=== PATIENT | male | born 1960 | race Caucasian/White ===

== ENCOUNTER 2017-06-19 17:16 | Emergency (ER) | payer OTHER, SELFPAY ==
[2017-06-19 17:50] VITALS: BP 84/53; PULSE 58; RESP 14; TEMP 36.1; O2SAT 94; BMI 31.2
--- NOTE | 2017-06-19 17:59 | PC.NURSE ---
pt nodding off during triage, mid sentence he would nod off. mentioned some doctor in [facility] who helps pt's get off pain medication. He also said he drove himself here.
[2017-06-19 18:25] VITALS: BP 92/56; PULSE 57; RESP 16; O2SAT 97
[2017-06-19 18:51] VITALS: BP 92/56; PULSE 58; RESP 16; O2SAT 95
--- NOTE | 2017-06-19 19:16 | DI.RAD.S_ITS ---
PROCEDURE: XR CHEST 1V INDICATIONS: sepsis eval TECHNIQUE: One view of the chest was acquired. COMPARISON: [facility], , CHEST 2 VIEW, 06/19/2014, 11:45. FINDINGS: Surgical changes and devices: Cervical spine postoperative change. Lungs and pleura: No pleural effusions or pneumothorax. Lungs are clear. Mediastinum: Prominent cardiac mediastinal silhouette. Bones and chest wall: No suspicious bony lesions. Overlying soft tissues appear unremarkable. IMPRESSION: Prominent cardiomediastinal silhouette is partially due to the portable technique. Recommend a PA and lateral chest radiograph in the department of radiology when the patient is able. Otherwise, negative chest. Dictated by: Antonio Bellamy M.D. on 06/19/2017 at 19:37 Approved by: Antonio Bellamy M.D. on 06/19/2017 at 19:38
--- NOTE | 2017-06-19 19:20 | DI.US.S_ITS ---
PROCEDURE: US PERIPH VENOUS LOW EXTREM RT INDICATIONS: PAIN, REDNESS TECHNIQUE: Real-time imaging, as well as color and pulse Doppler interrogation, were performed of the lower extremity deep veins from the inguinal ligament to the popliteal fossa. COMPARISON: None. FINDINGS: The deep veins are normally compressible, and free of intraluminal thrombus. Color and pulse Doppler demonstrate normal phasic intraluminal flow. There is normal augmentation response to distal compression maneuver. IMPRESSION: No sonographic evidence of deep venous thrombus in the right lower extremity to the level of the popliteal vein. Dictated by: Antonio Bellamy M.D. on 06/19/2017 at 20:06 Approved by: Antonio Bellamy M.D. on 06/19/2017 at 20:06
--- NOTE | 2017-06-19 19:31 | ED_ITS ---
HPI - Extremity Problem General Chief complaint: Extremity Problem,Nontraumatic Stated complaint: BOTH LEGS SWELLING Time Seen by Provider: 06/19/17 18:20 Source: patient Mode of arrival: ambulatory Limitations: no limitations History of Present Illness HPI Narrative: [facility] a chief complaint of gradually worsening swollen and painful lower extremities, right greater than left. He recently traveled from [place]. He denies any injury. He has got no shortness of breath but does feel fatigued. He has had fever and shaking chills the last few nights. MD Complaint: extremity pain Onset (ago): day(s) (4) Pain Consistency: constant Location: right Severity scale (1-10): 5 Quality: aching and dull Radiation: none Relieving factors: nothing Exacerbating factors: nothing Associated symptoms: fever Context: recent travel Related Data Home Medications Medication Instructions Recorded Confirmed ciprofloxacin HCl 500 mg BID 06/19/17 06/19/17 cyclobenzaprine 10 mg PO Q8H PRN 06/19/17 06/19/17 Previous Rx's Medication Instructions Recorded doxycycline monohydrate 100 mg PO BID 10 Days #20 cap 06/19/17 Allergies Allergy/AdvReac Type Severity Reaction Status Date / Time ibuprofen AdvReac Gastrointestinal Verified 06/19/17 17:59 Upset Review of Systems Review of Systems All systems reviewed & are unremarkable except as noted in HPI and below Constitutional Denies chills, Reports fever(s), Denies lethargy and Denies weakness Eyes Denies change in vision, Denies eye discharge, Denies irritation and Denies loss of vision ENT Ears, Nose, Mouth, and Throat: Denies change in voice, Denies neck pain and Denies sore throat Cardiovascular Denies chest pain, Denies irregular heart rhythm, Denies lightheadedness, Denies palpitations, Denies dyspnea, Denies dyspnea on exertion and Denies orthopnea Respiratory Denies cough, Denies dyspnea, Denies dyspnea on exertion and Denies wheezing Gastrointestinal Gastrointestinal: Denies abdominal pain, Denies change in bowel habits, Denies diarrhea, Denies nausea and Denies vomiting Genitourinary Denies hematuria, Denies flank pain, Denies urinary incontinence and Denies urinary urgency Musculoskeletal Denies neck pain Integumentary/Breasts Denies pruritus, Reports erythema, Denies rash and Reports wounds Comments: Patient has a chronic wound on the bottom of right great toe which he says has been there for at least 4 years. It is nonpainful Neurologic Denies confusion, Denies loss of vision and Denies weakness Psychiatric Denies anxiety, Denies confusion, Denies depression, Denies homicidal ideation and Denies suicidal ideation Endocrine Denies palpitations Hematologic/Lymphatic Denies easy bruising Allergic/Immunologic Denies wheezing PFSH Medical History Chronic back pain (Chronic) HTN (hypertension) (Chronic) Social History Smoking Status: Never smoker Exam Narrative Exam Narrative: Pleasant 57-year-old male in no obvious distress. He is a bit slow to respond Const General: cooperative and well developed Nutritional Appearance: well nourished Orientation: alert, awake, oriented x3, not confused and obtunded (mildly) HENMT Head: normocephalic and atraumatic Ears: external ears normal and TM's normal bilaterally Nose: external nose normal and No nasal discharge Face and sinus: sinuses nontender, face symmetric, no sinus tenderness and No dry mucous membranes Mouth: oral mucosae normal and moist mucous membranes Teeth and gingiva: dentition normal Throat: tonsils normal and uvula midline Eyes General: appearance normal, both eyes and all related structures Eyelids: eyelids normal Conjunctivae: conjunctivae normal Sclera: sclerae normal Pupils: PERRL EOM: EOM intact bilaterally Neck Neck: normal visual inspection, trachea midline, No lymphadenopathy, No midline deformity and No JVD Lymphatic: No lymphedema Chest Chest: normal inspection of the chest Resp Effort & Inspection: normal respiratory effort, able to speak in complete sentences, no respiratory distress and no use of accessory muscles Auscultation: clear to auscultation bilaterally, no rales, no rhonchi and no wheezes Cardio Rate: regular rate Rhythm: regular rhythm Heart Sounds: no click, no gallops, no murmurs and no rubs Pulses: normal peripheral pulses GI Inspection: non-distended Palpation: soft, no hepatosplenomegaly, No guarding, No pulsatile mass and No tender Auscultation: normal bowel sounds Back/Spine/Pelvis Back: No CVA tenderness Cervical Spine: cervical ROM normal and No pain with cervical ROM Thoracic/Lumbar Spine: thoracic and lumbar spine normal to inspection Skin General: dry skin and erythema Lesions: lesion noted (base of R great toe) Rashes: no rashes Trauma: no lacerations or abrasions Wounds: no wounds Hair: brittle Neuro General: alert, oriented x3, gait normal and no focal motor deficits Cranial Nerves: CN's II-XI intact bilaterally Speech: speech normal Motor: strength 5/5 throughout Sensory Exam: no sensory deficits noted Extrem Right lower extremity: full ROM, normal capillary refill, edema and lower leg ( erythema, calf tenderness) Left lower extremity: full ROM, normal capillary refill and edema MDM - Extremity (Nontraumatic) Lab Data Result diagrams: 06/19/17 20:20 06/19/17 20:20 Lab Results 06/19/17 06/19/17 06/19/17 Range/Units 20:20 20:20 20:20 WBC 26.7 H (4.5-11.0) X10^3/uL RBC 4.31 L (4.5-5.9) X10^6/uL Hgb 11.8 L (13.5-17.5) g/dL Hct 36.3 L (41-53) % MCV 84.3 (80-100) fL MCH 27.3 (26-34) PG MCHC 32.4 (30-36) % RDW 13.8 (11.6-14.8) % Plt Count 194 (150-400) X10^3/uL Neut % (Auto) Not Reportable Lymph % (Auto) Not Reportable Bent % (Auto) Not Reportable Eos % (Auto) Not Reportable Baso % (Auto) Not Reportable Total Counted 100 Seg Neutrophils % 13.0 L (38-70) % Band Neutrophils % 4.0 (3-7) % Lymphocytes % (Manual) 24.0 L (25-45) % Atypical Lymphs % 51.0 H ( - 0) % Monocytes % (Manual) 8.0 (2-11) % Neutrophils # (Manual) 4539 (1424-0329) /uL Differential Comment Not Reportable Anisocytosis 1+ H Sodium 142 (137-145) mmol/L Potassium 4.6 (3.4-5.1) mmol/L Chloride 104.0 (98-107) mmol/L Carbon Dioxide 26.0 (22-32) mmol/L BUN 12.0 (9-20) mg/dL Creatinine 1.00 (0.66-1.25) mg/dL Estimated GFR > 60.0 (>60) mL/min BUN/Creatinine Ratio 12.0 (6-22) Glucose 167 H (70-100) mg/dL Lactate (0.7-2.1) mmol/L Calcium 8.7 (8.4-10.2) mg/dL Total Bilirubin 0.6 (0.2-1.3) mg/dL Procalcitonin 0.07 (<0.5) ng/mL 06/19/17 Range/Units 20:20 WBC (4.5-11.0) X10^3/uL RBC (4.5-5.9) X10^6/uL Hgb (13.5-17.5) g/dL Hct (41-53) % MCV (80-100) fL MCH (26-34) PG MCHC (30-36) % RDW (11.6-14.8) % Plt Count (150-400) X10^3/uL Neut % (Auto) Lymph % (Auto) Bent % (Auto) Eos % (Auto) Baso % (Auto) Total Counted Seg Neutrophils % (38-70) % Band Neutrophils % (3-7) % Lymphocytes % (Manual) (25-45) % Atypical Lymphs % ( - 0) % Monocytes % (Manual) (2-11) % Neutrophils # (Manual) ([id number]) /uL Differential Comment Anisocytosis Sodium (137-145) mmol/L Potassium (3.4-5.1) mmol/L Chloride (98-107) mmol/L Carbon Dioxide (22-32) mmol/L BUN (9-20) mg/dL Creatinine (0.66-1.25) mg/dL Estimated GFR (>60) mL/min BUN/Creatinine Ratio (6-22) Glucose (70-100) mg/dL Lactate 0.9 (0.7-2.1) mmol/L Calcium (8.4-10.2) mg/dL Total Bilirubin (0.2-1.3) mg/dL Procalcitonin (<0.5) ng/mL Imaging Data Venous US: Radiologist's impression: PROCEDURE: US PERIPH VENOUS LOW EXTREM RT INDICATIONS: PAIN, REDNESS TECHNIQUE: Real-time imaging, as well as color and pulse Doppler interrogation, were performed of the lower extremity deep veins from the inguinal ligament to the popliteal fossa. COMPARISON: None. FINDINGS: The deep veins are normally compressible, and free of intraluminal thrombus. Color and pulse Doppler demonstrate normal phasic intraluminal flow. There is normal augmentation response to distal compression maneuver. IMPRESSION: No sonographic evidence of deep venous thrombus in the right lower extremity to the level of the popliteal vein. Dictated by: Antonio Bellamy M.D. on 06/19/2017 at 20:06 Approved by: Antonio Bellamy M.D. on 06/19/2017 at 20:06 Discharge Plan Departure Patient Disposition: Home, Self-Care Discharge Date/Time: 06/20/17 00:52 Interventions: ED Discharge Assessment Last Done: 06/20/17 00:45 Instructions: DI for Cellulitis -- Adult Activity Restrictions/Additional Instructions: There is no evidence of an emergent or life threatening illness at this time, but follow up with your doctor in 1-2 days is recommended nonetheless to continue to rule out serious underlying causes of your symptoms. Please call the office for an appointment. Please return to the Emergency Department for any worsening or persistent symptoms. Please take medications as directed. Prescriptions: New doxycycline monohydrate 100 mg capsule 100 mg PO BID 10 Days Qty: 20 RF: 0 No Action ciprofloxacin HCl 500 mg tablet 500 mg BID RF: 0 cyclobenzaprine 10 mg Tablet 10 mg PO Q8H PRN (Reason: Pain) RF: 0
[2017-06-19 20:30] VITALS: BP 153/89; PULSE 64; RESP 17; O2SAT 100
[2017-06-19 20:45] VITALS: BP 153/89; PULSE 70; RESP 22
[2017-06-19 20:47] LABS: Hematocrit 36.3 % (41-53); Hemoglobin 11.8 g/dL (13.5-17.5); Mean Corpuscular HGB Conc 32.4 % (30-36); Mean Corpuscular Hemoglobin 27.3 PG (26-34); Mean Corpuscular Volume 84.3 fL (80-100); Platelet Count 194 X10^3/uL (150-400); Red Blood Cell Count 4.31 X10^6/uL (4.5-5.9); Red Cell Distribution Width 13.8 % (11.6-14.8); White Blood Cell Count 26.7 X10^3/uL (4.5-11.0)
[2017-06-19 20:49] LABS: Add Manual Diff / Slide Review YES
[2017-06-19 20:52] LABS: Bilirubin Total 0.6 mg/dL (0.2-1.3); Calcium 8.7 mg/dL (8.4-10.2); Estimated Glomerular Filt Rate > 60.0 mL/min (>60); Glucose 167 mg/dL (70-100); HEMOLYSIS 27 (0-50); Potassium 4.6 mmol/L (3.4-5.1); Sodium 142 mmol/L (137-145)
[2017-06-19 21:13] LABS: Neutrophils Absolute Manual 4539 /uL (3000-5900); Smudge Cells 3+; Total Cells Counted 100
[2017-06-19 21:14] LABS: Anisocytosis 1+
[2017-06-19 21:36] LABS: Procalcitonin 0.07 ng/mL (<0.5)
[2017-06-19 21:49] LABS: Lactate (Lactic Acid) 0.9 mmol/L (0.7-2.1)
[2017-06-19] MEDS: VANCOMYCIN IV (22:26)
[2017-06-19 22:36] VITALS: BP 174/95; PULSE 59; RESP 17; O2SAT 98
[2017-06-19] MEDS: DOXYCYCLINE HYCLATE 100 MG TABLET PO (23:53)
[2017-06-20 00:45] VITALS: BP 201/135; PULSE 78; RESP 20; TEMP 36.4; O2SAT 97
== END 2017-06-20 00:52 | disposition home or self-care (01) ==
PROVIDERS: Emergency Provider Emergency Medicine
DX: L03.115 Cellulitis of right lower limb (principal)
CPT/HCPCS: 36415; 36591; 71045; 80048; 82247; 83605; 84145; 85025; 87040; 93971; 96374; 99283; 99284; J3370

== ENCOUNTER → 2017-10-07 16:10 | Outpatient (CLI) | payer OTHER, SELFPAY ==
--- NOTE | 2017-10-07 16:17 | DI.RAD.S_ITS ---
PROCEDURE: XR CERVICAL SPINE 2V OR 3V INDICATIONS: CERVICAL RADICULOPATHY TECHNIQUE: 3 view(s) of the cervical spine were acquired. COMPARISON: None. FINDINGS: Bones: No fractures or dislocations to the T1 level. Prior ACDF C4-C5/C5-C6 with surgical plate, screws and bone grafts in expected position. Grade I retrolisthesis C3-C4. Moderate C6-C7 disc degeneration. Mild multilevel uncovertebral hypertrophy. The lateral masses of C1 appear intact on the odontoid view. No suspicious bony lesions. Soft tissues: No prevertebral soft tissue swelling. IMPRESSION: Multilevel degenerative change and prior ACDF C4-C5 and C5-C6. Dictated by: [facility] Interpreted: Abraham Norris MD on 10/07/2017 at 16:47 Approved by: Abraham Norris M.D. on 10/07/2017 at 17:01
== END ==
PROVIDERS: Family Provider Internal Medicine; PCP Internal Medicine; Visit Provider Internal Medicine
DX: M50.123 Cervical disc disorder at C6-C7 level with radiculopathy (principal); Z98.1 Arthrodesis status
CPT/HCPCS: 72040

== ENCOUNTER 2017-10-07 16:42 | Emergency (ER) | payer OTHER, SELFPAY | END 2017-10-07 17:23 | LOC: ED 16:44 | PROVIDERS: Family Provider Internal Medicine; PCP Internal Medicine | DX: T14.8XXA Other injury of unspecified body region, initial encounter (principal) | CPT/HCPCS: 99281 ==

== ENCOUNTER 2017-10-23 17:55 | Emergency (ER) | payer OTHER, SELFPAY ==
[2017-10-23 17:59] VITALS: BP 168/93; PULSE 82; RESP 14; O2SAT 100
--- NOTE | 2017-10-23 18:01 | DI.RAD.S_ITS ---
PROCEDURE: XR HIP W PEL IF DONE LT MIN 4V INDICATIONS: glf, lt hip pain TECHNIQUE: AP pelvis with lateral view(s) of the bilateral hip(s). COMPARISON: [facility] Orthopedic [facility], CR, XR PELVIS W LATERAL HIP LT, 06/27/2016, 14:46. [facility], CR, PELVIS W UNILATERAL HIP LEFT, 02/14/2015, 22:08. FINDINGS: Bones: No fractures or dislocations. Severe left hip joint space narrowing. Subchondral cyst within the left superior femoral head and acetabulum. Moderate right hip joint space narrowing and periarticular osteophyte formation. Pelvic ring appears intact. No suspicious bony lesions. Soft tissues: The visualized bowel gas pattern is normal. No suspicious soft tissue calcifications. IMPRESSION: 1. Left greater than right hip joint osteoarthritis. 2. No acute fracture. No osseous lesion. If clinical suspicion and/or symptoms persist, further assessment with repeat plainfilms, or advanced imaging (e.g., CT, MRI, or bone scan) may be helpful for further assessment. Dictated by: Vidhya Mora M.D. on 10/23/2017 at 18:20 Approved by: Vidhya Mora M.D. on 10/23/2017 at 18:21
--- NOTE | 2017-10-23 20:06 | ED.LOWEXIN ---
HPI - Extremity Injury (Lower) General Chief Complaint: Extremity Injury, Lower Stated Complaint: FELL LAST NIGHT Time Seen by Provider: 10/23/17 19:38 Source: patient Mode of arrival: ambulatory Limitations: no limitations History of Present Illness HPI Narrative: This 57-year-old gentleman comes in due to increased left hip and SI area pain after a fall yesterday evening. He states that he got out of bed last night to get something to drink, and his right foot slid straight out from under him. He states he hit his hip area on the edge of a bed post and fell backwards on the some boxes. He has felt a popping sensation in his knee recently and has had ongoing problems with arthritis. He states initially, he was not able to stand due to sensation of the hip giving out, later, he has been able to walk with support, i.e. from a counter. He states that he has ongoing urinary urgency, no acutely changed bowel or bladder symptoms. States that he does not have any paresthesia. He feels pain radiating down from the left gluteal to proximal thigh area and some on the lateral hip. His right knee feels unstable which has been an ongoing problem. It is difficult for him to tell whether there is any laxity in the hip due to his difficulty walking at baseline . He states that he has arthritis in multiple joints due to previous trauma. He denies any other injury such as head contusion or LOC. He states he has been using his regular pain medications but has not tried his Flector patch which previously has been very helpful for him. Related Data Home Medications Medication Instructions Recorded Confirmed atenolol 25 mg PO QDAY #0 09/07/12 oxycodone [OxyContin] 30 mg PO BID #0 09/07/12 oxycodone [Roxicodone] 30 mg PO Q3H #0 09/07/12 venlafaxine [Effexor XR] 150 mg PO QDAY #0 09/07/12 cyclobenzaprine 10 mg PO Q8H PRN 06/19/17 10/07/17 carvedilol 25 mg PO BID 10/07/17 10/07/17 diazepam 10/07/17 fluticasone-salmeterol [Advair 1 puff INHALATION BID 10/07/17 10/07/17 Diskus] naloxone [Narcan] 1 dose INTRANASAL DIRECTED 10/07/17 10/07/17 oxycodone 10/07/17 oxycodone [OxyContin] 1 tab PO BID 10/07/17 10/07/17 tizanidine 10/07/17 Allergies Allergy/AdvReac Type Severity Reaction Status Date / Time shellfish derived Allergy Intermediate FACIAL Unverified 05/29/17 12:24 SWELLING ibuprofen AdvReac Gastrointestinal Verified 06/19/17 17:59 Upset PFSH Medical History Fusion of spine of lumbosacral region (Resolved) Contusion of hip with intact skin (Acute) Osteoarthritis (Chronic) Back pain, sacroiliac (Chronic) Osteoarthritis of left hip (Chronic) Left sided sciatica (Chronic) Chronic back pain (Chronic) HTN (hypertension) (Chronic) Social History Smoking Status: Never smoker Exam Narrative Exam Narrative: GENERAL APPEARANCE: Patient sitting comfortably, in no distress. LUNGS: Clear to auscultation bilaterally. HEART: Rate and rhythm regular without murmur, normal S1 and S2, no S3 or S4. DERMATOLOGIC: No ecchymoses or wounds over the left lumbosacral area, hip, or right knee MUSCULOSKELETAL: Right knee no effusion or tenderness over the bony prominences. He has somewhat limited flexion with moderate crepitus. Left SI joint he has mild tenderness. No point tenderness over the left hip. No tenderness over the lumbosacral spine. Left lower extremity strength 5/5 hip flexion, knee extension, foot plantar flexion. Negative straight leg raise. Hip passive and active range of motion is limited secondary to tenderness. NEUROVASCULAR: Left lower extremity and foot warm and pink, sensation grossly intact Initial Vital Signs Initial Vital Signs: Vital Signs Pulse Rate 82 10/23/17 17:59 Respiratory Rate 14 10/23/17 17:59 Blood Pressure 168/93 H 10/23/17 17:59 Pulse Oximetry 100 10/23/17 17:59 Course Orders Ordered: ED Orders 10/23/17 18:01 XR hip w pel if done HALEY 3to4V Stat Vital Signs - 8 hr 10/23/17 17:59 10/23/17 20:39 Pulse Rate 82 68 Respiratory Rate 14 Blood Pressure 168/93 H Blood Pressure [Left Arm] 165/76 H Pulse Oximetry 100 100 MDM - Extremity Injury (Lower) Imaging Data hip: Radiologist's impression: [address] [address] XRay Report Signed Patient: Joshua Wilson MR#: [id number] : 1960 Acct:[id number] Age/Sex: 57 / M Date of Service: 10/23/17 Loc: ED Accession Number: [id number] Procedure: XR hip w pel if done HALEY 3to4V Ordering Provider: Suzanne De Leon D.O. PROCEDURE: XR HIP W PEL IF DONE LT MIN 4V INDICATIONS: glf, lt hip pain TECHNIQUE: AP pelvis with lateral view(s) of the bilateral hip(s). COMPARISON: [facility] Orthopedic [facility], CR, XR PELVIS W LATERAL HIP LT, 06/27/2016, 14:46. [facility], CR, PELVIS W UNILATERAL HIP LEFT, 02/14/2015, 22:08. FINDINGS: Bones: No fractures or dislocations. Severe left hip joint space narrowing. Subchondral cyst within the left superior femoral head and acetabulum. Moderate right hip joint space narrowing and periarticular osteophyte formation. Pelvic ring appears intact. No suspicious bony lesions. Soft tissues: The visualized bowel gas pattern is normal. No suspicious soft tissue calcifications. IMPRESSION: 1. Left greater than right hip joint osteoarthritis. 2. No acute fracture. No osseous lesion. If clinical suspicion and/or symptoms persist, further assessment with repeat plainfilms, or advanced imaging (e.g., CT, MRI, or bone scan) may be helpful for further assessment. Dictated by: Vidhya Mora M.D. on 10/23/2017 at 18:20 Approved by: Vidhya Mora M.D. on 10/23/2017 at 18:21 Discharge Plan Departure Patient Disposition: Home Clinical Impression: Contusion of hip with intact skin, Osteoarthritis, Back pain, sacroiliac Discharge Date/Time: 10/23/17 20:51 Interventions: ED Discharge Assessment Last Done: 10/23/17 20:51 Instructions: Sacroiliac Joint Pain Activity Restrictions/Additional Instructions: Your xray does not show any acute changes such as a fracture, however it does show significant osteoarthritis, that is worse on the left. You are also having some pain in the joint were your back in your hip connect, called the sacroiliac joint. I suspect all of this is due to your fall and contusion of this area, and I agree with you it is a good idea to try your Flector patch that you have at home for the pain. Please return as we talked about if you have any acutely worsening symptoms. Otherwise, please call your orthopedics or PCP office to schedule follow up next week for recheck as you may need further imaging or testing if you are not getting better. Please be sure to use your walker! Prescriptions: No Action atenolol 25 MG tablet 25 mg PO QDAY Qty: 0 RF: 0 venlafaxine [Effexor XR] 150 MG capsule,extended release 24hr 150 mg PO QDAY Qty: 0 RF: 0 oxycodone [Roxicodone] 30 MG tablet 30 mg PO Q3H Qty: 0 RF: 0 oxycodone [OxyContin] 30 MG tablet,oral only,ext.rel.12 hr 30 mg PO BID Qty: 0 RF: 0 cyclobenzaprine 10 mg Tablet 10 mg PO Q8H PRN (Reason: Pain) RF: 0 fluticasone-salmeterol [Advair Diskus] 250-50 mcg/dose blister with device 1 puff Inhalation BID RF: 0 carvedilol 25 mg tablet 25 mg PO BID RF: 0 tizanidine 4 mg tablet RF: 0 oxycodone 30 mg tablet RF: 0 diazepam 10 mg tablet RF: 0 oxycodone [OxyContin] 60 mg tablet,oral only,ext.rel.12 hr 1 tab PO BID RF: 0 naloxone [Narcan] 4 mg/actuation spray,non-aerosol 1 dose Intranasal DIRECTED RF: 0 Referrals: Leilani Watson [Primary Care Provider] - Noel Zuniga MD [Physician] -
[2017-10-23 20:39] VITALS: BP 165/76; PULSE 68; O2SAT 100
== END 2017-10-23 20:51 | disposition home or self-care (01) ==
PROVIDERS: Emergency Provider Internal Medicine; Family Provider Internal Medicine; PCP Internal Medicine
DX: S70.02XA Contusion of left hip, initial encounter (principal); M19.90 Unspecified osteoarthritis, unspecified site; M53.3 Sacrococcygeal disorders, not elsewhere classified; W01.0XXA Fall on same level from slipping, tripping and stumbling without subsequent striking against object, initial encounter
CPT/HCPCS: 73522; 99282; 99283

== ENCOUNTER → 2018-09-29 16:16 | Outpatient (CLI) | payer OTHER, SELFPAY ==
[2018-09-29 18:19] LABS: Hematocrit 38.5 % (41-53); Mean Corpuscular HGB Conc 31.3 % (30-36); Mean Corpuscular Hemoglobin 25.8 PG (26-34); Mean Corpuscular Volume 82.4 fL (80-100); Platelet Count 204 X10^3/uL (150-400); Red Blood Cell Count 4.67 X10^6/uL (4.5-5.9); Red Cell Distribution Width 14.3 % (11.6-14.8)
[2018-09-29 18:22] LABS: Alanine Aminotransferase 28 IU/L (21-72); Albumin 4.1 g/dL (3.5-5.0); Albumin Globulin Ratio 1.5 (1.0-2.8); Alkaline Phosphatase 135 U/L (38-126); Aspartate Aminotransferase 28 IU/L (17-59); BUN Creatinine Ratio 13.8 (6-22); Bilirubin Total 0.7 mg/dL (0.2-1.3); Blood Urea Nitrogen 11 mg/dL (9-20); Calcium 9.2 mg/dL (8.4-10.2); Carbon Dioxide 30 mmol/L (22-32); Chloride 102 mmol/L (98-107); Cholesterol 173 mg/dL (140-199); Estimated Glomerular Filt Rate > 60.0 mL/min (>60); Globulin 2.8 g/dL (1.7-4.1); Glucose 190 mg/dL (70-100); HDL Cholesterol 29 mg/dL (40-60); HEMOLYSIS < 15 (0-50); Hemoglobin A1C% w Est Avg Glu 9.9 % (4.0-6.0); LDL Cholesterol Calculated 121 mg/dL (<100); Sodium 142 mmol/L (137-145); Total Protein 6.9 g/dL (6.3-8.2); Triglycerides 115 mg/dL (35-150)
[2018-09-29 18:47] LABS: Thyroid Stimulating Hormone 1.72 uIU/mL (0.47-4.68)
[2018-09-29 19:02] LABS: Add Manual Diff / Slide Review YES
[2018-09-29 19:05] LABS: Neutrophils Absolute Manual 9870 /uL (3000-5900); Smudge Cells 2+; Total Cells Counted 100
[2018-09-29 19:30] LABS: Folate 6.8 ng/mL (2.76-20.0); Vitamin B12 464 pg/mL (239-931)
== END ==
PROVIDERS: Family Provider Internal Medicine; PCP Internal Medicine; Visit Provider Internal Medicine
DX: C91.10 Chronic lymphocytic leukemia of B-cell type not having achieved remission (principal); E11.65 Type 2 diabetes mellitus with hyperglycemia; M54.12 Radiculopathy, cervical region; I10 Essential (primary) hypertension; E78.5 Hyperlipidemia, unspecified; R53.81 Other malaise
CPT/HCPCS: 36415; 80053; 80061; 82607; 82746; 83036; 84443; 85025

== ENCOUNTER 2020-01-17 20:27 | Emergency (ER) | payer OTHER, SELFPAY ==
[2020-01-17 20:34] VITALS: BP 181/93; PULSE 89; RESP 22; TEMP 37; O2SAT 95
--- NOTE | 2020-01-17 21:24 | ED.WOUNDLAC ---
HPI - Wound/Laceration General Chief Complaint: Wound/Laceration Stated Complaint: wound to left hand Time Seen by Provider: 01/17/20 20:47 Source: patient Mode of arrival: Ambulatory Limitations: no limitations History of Present Illness HPI narrative: 59M non smoker with extensive medical history presents with an accidental laceration to his left hand. He was walking and tripped while carrying a glass which then broke and lacerated the palm of his hand. His tetanus is current, he has full range of motion and denies numbness tingling or weakness. He is otherwise well and free of complaint. Onset (ago): minute(s) Extremity Location: Left: hand Body four view annotation: 1. Place: home Patient tetanus UTD: Yes Context: accidental Associated symptoms: pain Treatments prior to arrival: bandage Related Data Home Medications Medication Instructions Recorded Confirmed atenolol 25 mg PO QDAY #0 09/07/12 oxycodone [OxyContin] 30 mg PO BID #0 09/07/12 oxycodone [Roxicodone] 30 mg PO Q3H #0 09/07/12 venlafaxine [Effexor XR] 150 mg PO QDAY #0 09/07/12 cyclobenzaprine 10 mg PO Q8H PRN 06/19/17 10/07/17 carvedilol 25 mg PO BID 10/07/17 10/07/17 diazepam 10/07/17 fluticasone propion-salmeterol 1 puff INHALATION BID 10/07/17 10/07/17 [Advair Diskus] naloxone [Narcan] 1 dose INTRANASAL DIRECTED 10/07/17 10/07/17 oxycodone 10/07/17 oxycodone [OxyContin] 1 tab PO BID 10/07/17 10/07/17 tizanidine 10/07/17 Previous Rx's Medication Instructions Recorded cephalexin [Keflex] 500 mg PO QID 7 Days #28 cap 01/17/20 Allergies Allergy/AdvReac Type Severity Reaction Status Date / Time shellfish derived Allergy Intermediate FACIAL Unverified 05/29/17 12:24 SWELLING ibuprofen AdvReac Gastrointestinal Verified 06/19/17 17:59 Upset Review of Systems Constitutional Constitutional: Denies chills, Denies fatigue, Denies fever(s), Denies frequent falls, Denies lethargy and Denies weakness Eyes Eyes: Denies change in vision, Denies eye discharge, Denies irritation and Denies loss of vision ENT Ears, Nose, Mouth, and Throat: Denies change in voice, Denies dizziness, Denies neck pain, Denies sore throat and Denies throat swelling Cardiovascular Cardiovascular: Denies chest pain, Denies irregular heart rhythm, Denies lightheadedness, Denies palpitations, Denies dyspnea, Denies dyspnea on exertion and Denies orthopnea Respiratory Respiratory: Denies cough, Denies dyspnea, Denies dyspnea on exertion and Denies wheezing Gastrointestinal Gastrointestinal: Denies abdominal pain, Denies change in bowel habits, Denies diarrhea, Denies nausea and Denies vomiting Musculoskeletal Musculoskeletal: Denies neck pain and Denies numbness Integumentary/Breasts Skin/Breast: Denies pruritus, Denies erythema, Denies rash and Reports wounds Neurologic Neurologic: Denies behavioral changes, Denies confusion, Denies dizziness, Denies frequent falls, Denies loss of vision, Denies numbness and Denies weakness Psychiatric Psychiatric: Denies anxiety, Denies behavioral changes, Denies confusion, Denies depression, Denies homicidal ideation and Denies suicidal ideation Endocrine Endocrine: Denies fatigue, Denies flushing and Denies palpitations Hematologic/Lymphatic Hematologic/Lymphatic: Denies easy bruising Allergic/Immunologic Allergic/Immunologic: Denies urticaria, Denies throat swelling and Denies wheezing Patient History Medical History Back pain, sacroiliac Chronic back pain Contusion of hip with intact skin Fusion of spine of lumbosacral region HTN (hypertension) Left sided sciatica Osteoarthritis Osteoarthritis of left hip Social History Smoking Status: Never smoker Smoking Status: Never smoker Substance Use Type: does not use Exam Narrative Exam Narrative: GEN: AOx3 and in mild distress EYES: Pupils are equal, round, and reactive to light and accommodation. Extraoccular muscles are intact bilaterally. There is no subconjunctival hemorrhage or exudate. CHEST: Lungs are clear to auscultation bilaterally and free of wheezes, rales, or rhonchi. Heart rate is regular rhythm, there are no murmurs, clicks, rubs, or gallops. There is no chest wall tenderness. ABD: Abdomen is soft and nontender. There is no guarding or rebound. Bowel sounds are normal in all 4 quadrants. There is no mass or organomegaly. EXT: 2 cm laceration on the thenar eminence with extensive probing and no suspicion of foreign body. A 2nd much smaller, 0.3 cm irregular laceration at the base of the 5th finger on palmar surface will require 1 suture Full painless ROM of all extremities with no loss of sensation or strength. SKIN: Warm, pink, and dry. No erythema or rash Initial Vital Signs Initial Vital Signs: Vital Signs Temperature 98.6 F 01/17/20 20:34 Pulse Rate 89 01/17/20 20:34 Respiratory Rate 22 01/17/20 20:34 Blood Pressure 181/93 H 01/17/20 20:34 Pulse Oximetry 95 01/17/20 20:34 Procedures Laceration Repair Laceration 1: Site: hand Side (If applicable): left Size (cm): 2 Description: linear Depth: simple, single layer Local Anesthetic: lidocaine 1% Amount of anesthesia used (mL): 4 Pre-repair: wound explored and irrigated extensively Skin layer closed with: nylon Size (cm): 5-0 Number of sutures: 4 Technique: simple, interrupted Laceration 2: Site: hand Side (If applicable): left Size (cm): 0.3 Description: stellate Depth: simple, single layer Local Anesthetic: lidocaine 1% Skin layer closed with: nylon Size (cm): 5-0 Number of sutures: 1 Course Orders Ordered: ED Orders 01/17/20 21:38 XR hand LT min 3V Stat Discontinued Medications Lidocaine/Sodium Bicarbonate (Lido 1%/Sod Bicarb 8.4% (10ml) 10 Ml Syringe) 10 ml INJ NOW ONE Stop: 01/17/20 21:33 Last Admin: 01/17/20 21:49 Dose: 10 ml Documented by: MITCHELL Vital Signs Vital signs: Vital Signs - 8 hr 01/17/20 20:34 01/17/20 22:37 Temperature 98.6 F Pulse Rate 89 67 Respiratory Rate 22 18 Blood Pressure 181/93 H 173/83 H Pulse Oximetry 95 97 MDM - Wound/Laceration Imaging Data Extremity x-ray #1: Radiologist's Impression: No FB Discharge Plan Departure Patient Disposition: Home Clinical Impression: Laceration Instructions: DI for Laceration Repair Activity Restrictions/Additional Instructions: *You have been diagnosed with [lacerations on left hand, no sign of foreign body] *What to do: *Take medications as directed: [facility] in [place] Please keep the wound clean and dry to the best of your ability. Please monitor for signs of infection such as redness to the skin or increasing pain. Have the sutures removed by your doctor in about 7 days. If you are unable to get into your doctor, we would be happy to remove the sutures in that same timeframe. *Return to ER if you should have any new, worsening or concerning symptoms, such as [increasing pain, swelling, redness or other concerning symptoms] Prescriptions: New cephalexin [Keflex] 500 mg capsule 500 mg PO QID 7 Days Qty: 28 RF: 0 No Action atenolol 25 MG tablet 25 mg PO QDAY Qty: 0 RF: 0 venlafaxine [Effexor XR] 150 MG capsule,extended release 24hr 150 mg PO QDAY Qty: 0 RF: 0 oxycodone [Roxicodone] 30 MG tablet 30 mg PO Q3H Qty: 0 RF: 0 oxycodone [OxyContin] 30 MG tablet,oral only,ext.rel.12 hr 30 mg PO BID Qty: 0 RF: 0 cyclobenzaprine 10 mg Tablet 10 mg PO Q8H PRN (Reason: Pain) RF: 0 fluticasone propion-salmeterol [Advair Diskus] 250-50 mcg/dose blister with device 1 puff Inhalation BID RF: 0 carvedilol 25 mg tablet 25 mg PO BID RF: 0 tizanidine 4 mg tablet RF: 0 oxycodone 30 mg tablet RF: 0 diazepam 10 mg tablet RF: 0 oxycodone [OxyContin] 60 mg tablet,oral only,ext.rel.12 hr 1 tab PO BID RF: 0 naloxone [Narcan] 4 mg/actuation spray,non-aerosol 1 dose Intranasal DIRECTED RF: 0 Referrals: Leilani Watson MD [Primary Care Provider] -
--- NOTE | 2020-01-17 21:38 | DI.RAD.S_ITS ---
PROCEDURE: XR HAND LT MIN 3V INDICATIONS: wounds with leaded glass TECHNIQUE: 3 views of the hand(s) acquired. COMPARISON: None. FINDINGS: Bones: No fractures or dislocations. Carpal bones are normally aligned. No suspicious bony lesions. Soft tissues: No suspicious soft tissue calcifications. No radiopaque foreign body. IMPRESSION: No radiopaque foreign body identified. -If clinically indicated consider follow-up targeted ultrasound. No acute osseous abnormality. Dictated by: Jim Seay M.D. on 01/17/2020 at 21:55 Approved by: Jim Seay M.D. on 01/17/2020 at 21:57
[2020-01-17] MEDS: LIDO 1%/SOD BICARB 8.4% (10ML) 10 ML SYRINGE INJ (21:49)
[2020-01-17 22:37] VITALS: BP 173/83; PULSE 67; RESP 18; O2SAT 97
== END 2020-01-17 22:38 | disposition home or self-care (01) ==
PROVIDERS: Emergency Provider Emergency Medicine; Family Provider Internal Medicine; PCP Internal Medicine
DX: S61.412A Laceration without foreign body of left hand, initial encounter (principal); W25.XXXA Contact with sharp glass, initial encounter
CPT/HCPCS: 12001; 73130; 99283

== ENCOUNTER 2020-03-28 15:15 | Emergency (ER) | payer OTHER, SELFPAY ==
[2020-03-28 15:22] VITALS: BP 147/72; PULSE 92; RESP 20; TEMP 36.1; O2SAT 100
--- NOTE | 2020-03-28 17:07 | PC.NURSE ---
Received notes from Naif. Reviewed by provider. Orders placed. Attempted to bring pt to room and found him not in waiting room. Registration state he walked out @ 1600.
--- NOTE | 2020-03-28 17:10 | PC.NURSE ---
Called pt who answered his cell phone. I was calling to offer that he could come back to the ED w/ immediate rooming. He states I don't wait anywhere for hours and bitches like you who make me wait make me sick. I'll never come back to [facility] again. Noted pt left less than one hour after triage per registration report, did not know why he was coming to ED and was hemodynamically stable upon triage. No shortness of breath noted during our brief conversation (able to speak in long sentence without stopping to take a breath). Hung up on me before I could tell him to follow up as needed and indicated and return for any concerns.
== END 2020-03-28 17:27 | disposition left against medical advice (07) ==
PROVIDERS: Emergency Provider Emergency Medicine; Family Provider Internal Medicine; PCP Internal Medicine
CPT/HCPCS: 99281

== ENCOUNTER 2020-04-07 13:13 | Emergency (ER) | payer OTHER, SELFPAY ==
[2020-04-07] VITALS (18 sets, daily range): BP systolic 164–210; BP diastolic 79–131; PULSE 61–88; RESP 11–26; TEMP 37.2; O2SAT 80–100; BMI 27.5
--- NOTE | 2020-04-07 13:59 | DI.RAD.S_ITS ---
PROCEDURE: XR CHEST 1V INDICATIONS: suspected sepsis TECHNIQUE: One view of the chest was acquired. COMPARISON: [facility], , XR CHEST 1V, 06/19/2017, 19:27. [facility], , CHEST 2 VIEW, 06/19/2014, 11:45. FINDINGS: Surgical changes and devices: None. Lungs and pleura: Lungs are difficult to accurately assess due to patient rotation and tilt. When these factors are taken into account and also body habitus the heart size is likely at the upper limits of normal but no definite congestive heart failure is seen. Lung base atelectasis is mild.. No pleural effusions or pneumothorax. Mediastinum: Mediastinal contours appear normal. Heart size is normal. Bones and chest wall: No suspicious bony lesions. Overlying soft tissues appear unremarkable. IMPRESSION: No definite pneumonia found but the patient is rotated and tilted rightward and quality of visualization through the lungs is relatively limited. Follow-up deep inspiratory imaging may be warranted when clinically feasible. Dictated by: Abraham Norris M.D. on 04/07/2020 at 15:04 Approved by: Abraham Norris M.D. on 04/07/2020 at 15:05
[2020-04-07 14:12] LABS: INR 1.2 (0.9-1.3); Prothrombin Time 13.4 SECONDS (10.1-12.7)
[2020-04-07 14:14] LABS: Hematocrit 30.9 % (41-53); Hemoglobin 9.3 g/dL (13.5-17.5); Mean Corpuscular HGB Conc 30.1 % (30-36); Mean Corpuscular Hemoglobin 25.5 PG (26-34); Mean Corpuscular Volume 84.6 fL (80-100); PTT Partial Thromboplastin Tim 33 SECONDS (26.4-36.2); Platelet Count 298 X10^3/uL (150-400); Red Blood Cell Count 3.65 X10^6/uL (4.5-5.9); Red Cell Distribution Width 17.3 % (11.6-14.8)
[2020-04-07 14:15] LABS: Add Manual Diff / Slide Review YES; White Blood Cell Count 153.8 X10^3/uL (4.5-11.0)
[2020-04-07 14:16] LABS: Alanine Aminotransferase 15 IU/L (<50); Albumin 4.1 g/dL (3.5-5.0); Albumin Globulin Ratio 1.4 (1.0-2.8); Alkaline Phosphatase 228 U/L (38-126); Aspartate Aminotransferase 25 IU/L (17-59); BUN Creatinine Ratio 7.4 (6-22); Bilirubin Total 0.4 mg/dL (0.2-1.3); Blood Urea Nitrogen 7 mg/dL (9-20); Calcium 7.5 mg/dL (8.4-10.2); Carbon Dioxide 29 mmol/L (22-32); Chloride 105 mmol/L (98-107); Estimated Glomerular Filt Rate > 60.0 mL/min (>60); Glucose 161 mg/dL (70-100); HEMOLYSIS < 15 (0-50); Lipase 61 U/L (23-300); Potassium 3.5 mmol/L (3.4-5.1); Sodium 141 mmol/L (137-145); Total Protein 7.1 g/dL (6.3-8.2)
[2020-04-07 14:17] LABS: Lactate (Lactic Acid) 1.1 mmol/L (0.7-2.1)
--- NOTE | 2020-04-07 14:25 | ED.RECABL ---
HPI - Recheck/Abnormal Lab/Rx General Chief Complaint: Recheck/Abnormal Lab/Rx Stated Complaint: WBC 18,000. 3 Strains of Infection in Foot/Blood,G Time Seen by Provider: 04/07/20 14:16 Source: patient Mode of arrival: Wheelchair Limitations: no limitations History of Present Illness HPI narrative: Patient is a 59-year-old gentleman who has history of CLL chronic opiate use diabetes came in today with history of positive blood culture for Klebsiella pneumonia. He was seen and evaluated at [facility] on 03/25/2019 thought to be septic with acute cholangitis. He was febrile tachycardic with white count of 133 elevated bilirubin and liver enzymes, concern for cholecystitis and some concern for cholangitis. Broad-spectrum antibiotics of cefepime and Flagyl were started in the ED and patient left against medical advice at that time. He presents today because he had the positive blood culture but overall has no complaints except for his chronic ongoing pain. He has chronic back pain for which he takes multiple opiates for. He is currently afebrile denies any abdominal pain nausea or vomiting no chest pain shortness of breath or any other symptoms. Related Data Home Medications Medication Instructions Recorded Confirmed atenolol 25 mg PO QDAY #0 09/07/12 oxycodone [OxyContin] 30 mg PO BID #0 09/07/12 oxycodone [Roxicodone] 30 mg PO Q3H #0 09/07/12 venlafaxine [Effexor XR] 150 mg PO QDAY #0 09/07/12 cyclobenzaprine 10 mg PO Q8H PRN 06/19/17 10/07/17 carvedilol 25 mg PO BID 10/07/17 10/07/17 diazepam 10/07/17 fluticasone propion-salmeterol 1 puff INHALATION BID 10/07/17 10/07/17 [Advair Diskus] naloxone [Narcan] 1 dose INTRANASAL DIRECTED 10/07/17 10/07/17 oxycodone 10/07/17 oxycodone [OxyContin] 1 tab PO BID 10/07/17 10/07/17 tizanidine 10/07/17 Allergies Allergy/AdvReac Type Severity Reaction Status Date / Time shellfish derived Allergy Intermediate FACIAL Verified 04/07/20 13:44 SWELLING ibuprofen AdvReac Gastrointestinal Verified 04/07/20 13:44 Upset Review of Systems Review of Systems ROS Unobtainable: All systems reviewed & are unremarkable except as noted in HPI and below Constitutional Constitutional: Denies chills, Denies fever(s), Denies lethargy and Denies weakness Eyes Eyes: Denies change in vision, Denies eye discharge, Denies irritation and Denies loss of vision Cardiovascular Cardiovascular: Denies chest pain, Denies irregular heart rhythm, Denies lightheadedness, Denies palpitations, Denies dyspnea, Denies dyspnea on exertion and Denies orthopnea Respiratory Respiratory: Denies cough, Denies dyspnea, Denies dyspnea on exertion and Denies wheezing Musculoskeletal Musculoskeletal: Reports as per HPI, Reports back pain, Denies arthralgias and Denies joint swelling Integumentary/Breasts Comments: Right big toe wound chronic Neurologic Neurologic: Denies loss of vision and Denies weakness Endocrine Endocrine: Denies palpitations Allergic/Immunologic Allergic/Immunologic: Denies wheezing Patient History Medical History Back pain, sacroiliac Chronic back pain CLL (chronic lymphocytic leukemia) Contusion of hip with intact skin Fusion of spine of lumbosacral region HTN (hypertension) Left sided sciatica Osteoarthritis Osteoarthritis of left hip Social History Smoking Status: Never smoker Smoking Status: Never smoker alcohol intake frequency: holidays/special occasions only Substance Use Type: does not use Exam Initial Vital Signs Initial Vital Signs: Vital Signs Temperature 99 F 04/07/20 13:35 Pulse Rate 81 04/07/20 13:35 Respiratory Rate 15 04/07/20 13:35 Blood Pressure 189/86 H 04/07/20 13:35 Pulse Oximetry 96 04/07/20 13:35 GENERAL: Alert slightly pale 59-year-old male and in no acute distress. HEENT: Head atraumatic,EOMI, pupils reactive, face symmetric, moist mucous membranes CARDIOVASCULAR: Regular rate and rhythm without murmurs, rubs or gallops. RESPIRATORY: Breath sounds equal bilaterally, no wheezes rales or rhonchi. ABDOMEN: Soft, nontender. Normoactive bowel sounds all 4 quadrants. No guarding or rebound. No right upper quadrant pain no lower abdominal pain no left upper quadrant pain EXTREMITIES: Normal range of motion, no clubbing or edema. Neurovascularly intact NEUROLOGICAL: Alert and oriented x4.Normal gait and speech. Cranial nerves II through XII grossly intact. SKIN: Warm, dry, no laceration, no petechiae, no rashes or lesions. Right big toe ulcer 3 cm x 1 cm no gross drainage no surrounding erythema Course Orders Ordered: ED Orders 04/07/20 13:45 Complete Blood Count AUTO DIFF Stat Comprehensive Metabolic Panel Stat Lactate (Lactic Acid) Stat Lipase Stat Partial Thromboplastin Time Stat Pathologist Review (for CBC) Stat Procalcitonin Stat Prothrombin Time INR Stat 04/07/20 13:59 XR chest 1V Stat RT Consult Eval and Treat Now 04/07/20 14:13 Blood Culture Stat 04/07/20 14:43 CT chest abd pel w con Stat 04/07/20 16:14 US abdomen limited Stat 04/07/20 16:49 COVID19 Stat Discontinued Medications Hydromorphone HCl (Hydromorphone 1 Mg Inj) 1 mg IV NOW ONE Stop: 04/07/20 14:44 Last Admin: 04/07/20 14:50 Dose: 1 mg Documented by: OSCAR Hydromorphone HCl (Hydromorphone 1 Mg Inj) 1 mg IV NOW ONE Stop: 04/07/20 16:40 Last Admin: 04/07/20 16:45 Dose: 1 mg Documented by: OSCAR Sodium Chloride (Normal Saline 0.9%) 1,000 mls @ 1,000 mls/hr IV BOLUS ONE Stop: 04/07/20 14:58 Last Infusion: 04/07/20 15:55 Dose: 0 mls/hr Documented by: Admin: 04/07/20 14:30 Dose: 1,000 mls/hr Documented by: OSCAR Cefepime HCl 2 gm/ Sodium (Chloride) 100 mls @ 200 mls/hr IV NOW ONE Stop: 04/07/20 15:34 Last Infusion: 04/07/20 16:36 Dose: 0 mls/hr Documented by: Admin: 04/07/20 15:53 Dose: 200 mls/hr Documented by: OSCAR Vancomycin HCl/Dextrose (Vancomycin) 1,500 mg in 300 mls @ 200 mls/hr IV NOW ONE Stop: 04/07/20 17:02 Last Infusion: 04/07/20 18:45 Dose: 0 mls/hr Documented by: Admin: 04/07/20 16:51 Dose: 200 mls/hr Documented by: OSCAR Vital Signs Vital signs: Vital Signs - 8 hr 04/07/20 13:35 04/07/20 13:40 04/07/20 13:41 Temperature 99 F Pulse Rate 81 80 Respiratory Rate 15 Blood Pressure 189/86 H 189/86 H Pulse Oximetry 96 04/07/20 14:00 04/07/20 14:30 04/07/20 15:00 Temperature Pulse Rate 88 67 72 Respiratory Rate 22 16 Blood Pressure 169/85 H Pulse Oximetry 100 99 04/07/20 15:23 04/07/20 15:30 04/07/20 16:00 Temperature Pulse Rate 66 61 61 Respiratory Rate 16 15 16 Blood Pressure 185/89 H 167/88 H 164/79 H Pulse Oximetry 100 100 98 04/07/20 16:30 04/07/20 17:00 04/07/20 17:30 Temperature Pulse Rate 69 72 69 Respiratory Rate 26 H 18 20 Blood Pressure 178/98 H Pulse Oximetry 100 100 100 04/07/20 17:31 04/07/20 18:00 04/07/20 18:30 Temperature Pulse Rate 69 70 75 Respiratory Rate 21 16 17 Blood Pressure 182/104 H 190/106 H 193/98 H Pulse Oximetry 97 98 99 04/07/20 19:00 04/07/20 19:30 04/07/20 19:31 Temperature Pulse Rate 82 84 84 Respiratory Rate 23 11 L 11 L Blood Pressure 199/106 H 210/131 H Pulse Oximetry 100 95 80 L MDM - Recheck/Abnormal Lab/Rx Lab Data Attestation: I reviewed the patient's lab results. Result diagrams: 04/07/20 13:45 04/07/20 13:45 Labs: Lab Results 04/07/20 04/07/20 04/07/20 Range/Units 13:45 13:45 13:45 WBC 153.8 H* (4.5-11.0) X10^3/uL RBC 3.65 L (4.5-5.9) X10^6/uL Hgb 9.3 L (13.5-17.5) g/dL Hct 30.9 L (41-53) % MCV 84.6 (80-100) fL MCH 25.5 L (26-34) PG MCHC 30.1 (30-36) % RDW 17.3 H (11.6-14.8) % Plt Count 298 (150-400) X10^3/uL Neut % (Auto) Not Reportable Lymph % (Auto) Not Reportable Lake % (Auto) Not Reportable Eos % (Auto) Not Reportable Baso % (Auto) Not Reportable Lymph # (Auto) Not Reportable Lake # (Auto) Not Reportable Baso # (Auto) Not Reportable Total Counted 100 Seg Neutrophils % 11.0 L (38-70) % Lymphocytes % (Manual) 54.0 H (25-45) % Atypical Lymphs % 28.0 H ( - 0) % Monocytes % (Manual) 1.0 L (2-11) % Metamyelocytes % 1.0 H (-0) % Myelocytes % 1.0 H (-0) % Promyelocytes % 2.0 H (-0) % Blast Cells % 2.0 H (-0) % Neutrophils # (Manual) 25405 H (6373-3350) /uL Smudge Cells 3+ H RBC Morphology Not Reportable Anisocytosis 2+ H PT 13.4 H (10.1-12.7) SECONDS INR 1.2 (0.9-1.3) APTT 33 (26.4-36.2) SECONDS Sodium 141 (137-145) mmol/L Potassium 3.5 (3.4-5.1) mmol/L Chloride 105 (98-107) mmol/L Carbon Dioxide 29 (22-32) mmol/L BUN 7 L (9-20) mg/dL Creatinine 0.94 (0.66-1.25) mg/dL Estimated GFR > 60.0 (>60) mL/min BUN/Creatinine Ratio 7.4 (6-22) Glucose 161 H (70-100) mg/dL Lactate (0.7-2.1) mmol/L Calcium 7.5 L (8.4-10.2) mg/dL Total Bilirubin 0.4 (0.2-1.3) mg/dL AST 25 (17-59) IU/L ALT 15 (<50) IU/L Alkaline Phosphatase 228 H (38-126) U/L Total Protein 7.1 (6.3-8.2) g/dL Albumin 4.1 (3.5-5.0) g/dL Globulin 3.0 (1.7-4.1) g/dL Albumin/Globulin Ratio 1.4 (1.0-2.8) Lipase 61 (23-300) U/L Procalcitonin 0.07 (<0.5) ng/mL SARS-CoV-2 (PCR) (Negative) 04/07/20 04/07/20 Range/Units 13:45 16:49 WBC (4.5-11.0) X10^3/uL RBC (4.5-5.9) X10^6/uL Hgb (13.5-17.5) g/dL Hct (41-53) % MCV (80-100) fL MCH (26-34) PG MCHC (30-36) % RDW (11.6-14.8) % Plt Count (150-400) X10^3/uL Neut % (Auto) Lymph % (Auto) Lake % (Auto) Eos % (Auto) Baso % (Auto) Lymph # (Auto) Lake # (Auto) Baso # (Auto) Total Counted Seg Neutrophils % (38-70) % Lymphocytes % (Manual) (25-45) % Atypical Lymphs % ( - 0) % Monocytes % (Manual) (2-11) % Metamyelocytes % (-0) % Myelocytes % (-0) % Promyelocytes % (-0) % Blast Cells % (-0) % Neutrophils # (Manual) (4831-2571) /uL Smudge Cells RBC Morphology Anisocytosis PT (10.1-12.7) SECONDS INR (0.9-1.3) APTT (26.4-36.2) SECONDS Sodium (137-145) mmol/L Potassium (3.4-5.1) mmol/L Chloride (98-107) mmol/L Carbon Dioxide (22-32) mmol/L BUN (9-20) mg/dL Creatinine (0.66-1.25) mg/dL Estimated GFR (>60) mL/min BUN/Creatinine Ratio (6-22) Glucose (70-100) mg/dL Lactate 1.1 (0.7-2.1) mmol/L Calcium (8.4-10.2) mg/dL Total Bilirubin (0.2-1.3) mg/dL AST (17-59) IU/L ALT (<50) IU/L Alkaline Phosphatase (38-126) U/L Total Protein (6.3-8.2) g/dL Albumin (3.5-5.0) g/dL Globulin (1.7-4.1) g/dL Albumin/Globulin Ratio (1.0-2.8) Lipase (23-300) U/L Procalcitonin (<0.5) ng/mL SARS-CoV-2 (PCR) Negative (Negative) Urine Dip Bedside Urine Glucose Negative Bedside Urine Bilirubin - Negative Bedside Urine Ketone - Negative Urine Specific [place] 1.010 Bedside Urine Occult Blood - Negative Bedside Urine pH 6 Bedside Urine Protein - Negative Bedside Urine Urobilinogen - Negative Bedside Urine Nitrite - Negative Bedside Urine Leukocytes - Negative Esterase Imaging Data CT scan - abdomen/pelvis: Radiologist's Impression: PROCEDURE: CT CHEST ABD PEL W CON INDICATIONS: acute on chronic CLL with fever TECHNIQUE: After the administration of oral and intravenous contrast, 5 mm thick sections acquired from the lung apices to the symphysis. 5 mm coronal and sagittal reformats were performed, with additional 7 mm coronal MIP reformats through the lungs. For radiation dose reduction, the following was used: automated exposure control, adjustment of mA and/or kV according to patient size. COMPARISON: None. FINDINGS: Image quality: Excellent. CHEST: Lungs and pleura: There are subtle scattered patchy ground-glass infiltrates in the left upper lobe at a mid lung level but no consolidations. No other airspace opacities. No pleural effusions or pneumothorax. Central and peripheral airways appear patent and normal in caliber. Mediastinum: Heart size is normal. No pericardial effusion. Several shotty mediastinal lymph nodes are present. The largest is a right paratracheal lymph node which measures 1.4 cm in short axis. No bulky hilar adenopathy. Thoracic aorta and central pulmonary arteries are normal in size. Esophagus is normal in caliber. No hiatal hernia. Chest wall: Bilateral axillary, level one, two, and three lymph nodes are seen. Small left supraclavicular lymph nodes are present. There are severe degenerative changes at the right sternomanubrial articulation with vacuum phenomenon extending dorsally. Subacute to chronic bilateral lower rib fractures. Thyroid gland is normal . ABDOMEN: Solid organs: The liver is elongated in the craniocaudal dimension measuring 24.7 cm in length. The spleen is enlarged measuring 19.9 cm in craniocaudal dimension. The gallbladder demonstrates a mildly hyperenhancing and slightly thickened wall. There is sludge layering dependently. Biliary system is non dilated. Pancreas enhances normally. Spleen is normal in size and enhancement. No adrenal nodules. Kidneys demonstrate normal size and enhancement, without hydronephrosis. There are cysts present in each kidney. Peritoneum and bowel: Surgical changes of gastric bypass. No evidence of acute small bowel obstruction. There is decompression of the distal colon and occasional diverticula in the sigmoid. No evidence of acute colitis. No free intraperitoneal air. Nodes and vessels: Numerous moderately prominent retroperitoneal lymph nodes are present. Abdominal aorta and inferior vena cava are of normal caliber. The portal vein is minimally prominent in the alphonse hepatis. Splenic vein is patent. Miscellaneous: No ventral hernias. PELVIS: Genitourinary: Bladder wall thickness is normal. Miscellaneous: There is bulky bilateral iliac chain adenopathy and pelvic sidewall adenopathy. Mild inguinal adenopathy bilaterally. Tiny fat containing bilateral inguinal hernias. Bones: No suspicious bony lesions. Marked degenerative changes in the left femoroacetabular joint and severe degeneration of the right. There is posterior bony fusion and laminectomy from L4 through S1. No vertebral body compression fractures. IMPRESSION: 1. Changes suspicious for acute cholecystitis. 2. Right upper quadrant ultrasound is recommended. 3. Subtle changes of minor lingular pneumonitis. 4. Hepatosplenomegaly. 5. Adenopathy in the chest, retroperitoneum, and pelvis as described consistent with known history of CLL. 6. Preliminary findings discussed with Dr. Suzanne De Leon in the emergency room at 14:30 hours. Dictated by: Nga Pittman M.D. on 04/07/2020 at 16:36 Chest x-ray: Radiologist's Impression: PROCEDURE: XR CHEST 1V INDICATIONS: suspected sepsis TECHNIQUE: One view of the chest was acquired. COMPARISON: [facility], , XR CHEST 1V, 06/19/2017, 19:27. [facility], CHEST 2 VIEW, 06/19/2014, 11:45. FINDINGS: Surgical changes and devices: None. Lungs and pleura: Lungs are difficult to accurately assess due to patient rotation and tilt. When these factors are taken into account and also body habitus the heart size is likely at the upper limits of normal but no definite congestive heart failure is seen. Lung base atelectasis is mild.. No pleural effusions or pneumothorax. Mediastinum: Mediastinal contours appear normal. Heart size is normal. Bones and chest wall: No suspicious bony lesions. Overlying soft tissues appear unremarkable. IMPRESSION: No definite pneumonia found but the patient is rotated and tilted rightward and quality of visualization through the lungs is relatively limited. Follow-up deep inspiratory imaging may be warranted when clinically feasible. Dictated by: Abraham Norris M.D. on 04/07/2020 at 15:04 US - abdomen: Radiologist's Impression: PROCEDURE: US ABDOMEN LIMITED INDICATIONS: ? cholangitis TECHNIQUE: Real-time scanning was performed of the abdominal and retroperitoneal organs, with image documentation. COMPARISON: [facility], CT, CT CHEST ABD PEL W CON, 04/07/2020, 14:48. FINDINGS: Liver is within normal limits. Normal flow in the main portal vein. Gallbladder wall is mildly thickened at 3 mm. Multiple calculi and sludge within the gallbladder lumen. Gallbladder is distended measuring 12.4 cm. By common bile duct is mildly prominent at 6 mm and demonstrates wall thickening. IMPRESSION: 1. Cholelithiasis. No evidence of cholecystitis. 2. Thickened bile ducts, possibly indicating cholangitis. 3. Concordant with preliminary interpretation. Dictated by: Vidhya Mora M.D. on 04/07/2020 at 17:22 ECG Data Attestation: I personally reviewed and interpreted this ECG as follows: Interpretation: Normal sinus rhythm rate 70 eat p.r. interval 174 QRS [address] changes no T-wave inversions MDM Narrative Medical decision making narrative: The patient overall does not appear septic today. He is is afebrile with normal liver enzymes and normal bilirubin he has absolutely no abdominal pain. She does have significantly more elevated WBC of 153.8 previously 133. Concerning for an acute process. He has blood cultures pending from today's visit I do not have of blood culture from [facility]. Patient is empirically given cefepime and vancomycin. He does have a chronic wound on his foot but it does not seem to be acutely infected. Initially spoke with Dr. Carlos at GI at [facility] who was updated patient's symptoms test results in to thought if there is concern for cholangitis that he need to be transferred to [facility] for ERCP was available. [address] kareem PAEZ at [place] has been updated on patient's symptoms test results does not need emergent ERCP at this time minimal concern for cholangitis however happy to consult and admit to hospitalist group 1800 Dr. Michael, hospitalist at [facility] and updated patient's symptoms and test results and agrees with transfer and admission The patient is agreeable to go to [facility]. He has required couple doses of Dilaudid for his ongoing back pain. Discharge Plan Departure Patient Disposition: [facility] Clinical Impression: Chronic lymphocytic leukemia Prescriptions: No Action atenolol 25 MG tablet 25 mg PO QDAY Qty: 0 RF: 0 venlafaxine [Effexor XR] 150 MG capsule,extended release 24hr 150 mg PO QDAY Qty: 0 RF: 0 oxycodone [Roxicodone] 30 MG tablet 30 mg PO Q3H Qty: 0 RF: 0 oxycodone [OxyContin] 30 MG tablet,oral only,ext.rel.12 hr 30 mg PO BID Qty: 0 RF: 0 cyclobenzaprine 10 mg Tablet 10 mg PO Q8H PRN (Reason: Pain) RF: 0 fluticasone propion-salmeterol [Advair Diskus] 250-50 mcg/dose blister with device 1 puff Inhalation BID RF: 0 carvedilol 25 mg tablet 25 mg PO BID RF: 0 tizanidine 4 mg tablet RF: 0 oxycodone 30 mg tablet RF: 0 diazepam 10 mg tablet RF: 0 oxycodone [OxyContin] 60 mg tablet,oral only,ext.rel.12 hr 1 tab PO BID RF: 0 naloxone [Narcan] 4 mg/actuation spray,non-aerosol 1 dose Intranasal DIRECTED RF: 0 Referrals: Leilani Watson MD [Primary Care Provider] -
[2020-04-07] MEDS: SODIUM CHLORIDE 0.9% 1,000 ML 1000 ML IV (14:30)
[2020-04-07 14:33] LABS: Anisocytosis 2+; Neutrophils Absolute Manual 16918 /uL (3000-5900); Procalcitonin 0.07 ng/mL (<0.5); Smudge Cells 3+; Total Cells Counted 100
--- NOTE | 2020-04-07 14:43 | DI.CT.S_ITS ---
PROCEDURE: CT CHEST ABD PEL W CON INDICATIONS: acute on chronic CLL with fever TECHNIQUE: After the administration of oral and intravenous contrast, 5 mm thick sections acquired from the lung apices to the symphysis. 5 mm coronal and sagittal reformats were performed, with additional 7 mm coronal MIP reformats through the lungs. For radiation dose reduction, the following was used: automated exposure control, adjustment of mA and/or kV according to patient size. COMPARISON: None. FINDINGS: Image quality: Excellent. CHEST: Lungs and pleura: There are subtle scattered patchy ground-glass infiltrates in the left upper lobe at a mid lung level but no consolidations. No other airspace opacities. No pleural effusions or pneumothorax. Central and peripheral airways appear patent and normal in caliber. Mediastinum: Heart size is normal. No pericardial effusion. Several shotty mediastinal lymph nodes are present. The largest is a right paratracheal lymph node which measures 1.4 cm in short axis. No bulky hilar adenopathy. Thoracic aorta and central pulmonary arteries are normal in size. Esophagus is normal in caliber. No hiatal hernia. Chest wall: Bilateral axillary, level one, two, and three lymph nodes are seen. Small left supraclavicular lymph nodes are present. There are severe degenerative changes at the right sternomanubrial articulation with vacuum phenomenon extending dorsally. Subacute to chronic bilateral lower rib fractures. Thyroid gland is normal . ABDOMEN: Solid organs: The liver is elongated in the craniocaudal dimension measuring 24.7 cm in length. The spleen is enlarged measuring 19.9 cm in craniocaudal dimension. The gallbladder demonstrates a mildly hyperenhancing and slightly thickened wall. There is sludge layering dependently. Biliary system is non dilated. Pancreas enhances normally. Spleen is normal in size and enhancement. No adrenal nodules. Kidneys demonstrate normal size and enhancement, without hydronephrosis. There are cysts present in each kidney. Peritoneum and bowel: Surgical changes of gastric bypass. No evidence of acute small bowel obstruction. There is decompression of the distal colon and occasional diverticula in the sigmoid. No evidence of acute colitis. No free intraperitoneal air. Nodes and vessels: Numerous moderately prominent retroperitoneal lymph nodes are present. Abdominal aorta and inferior vena cava are of normal caliber. The portal vein is minimally prominent in the alphonse hepatis. Splenic vein is patent. Miscellaneous: No ventral hernias. PELVIS: Genitourinary: Bladder wall thickness is normal. Miscellaneous: There is bulky bilateral iliac chain adenopathy and pelvic sidewall adenopathy. Mild inguinal adenopathy bilaterally. Tiny fat containing bilateral inguinal hernias. Bones: No suspicious bony lesions. Marked degenerative changes in the left femoroacetabular joint and severe degeneration of the right. There is posterior bony fusion and laminectomy from L4 through S1. No vertebral body compression fractures. IMPRESSION: 1. Changes suspicious for acute cholecystitis. 2. Right upper quadrant ultrasound is recommended. 3. Subtle changes of minor lingular pneumonitis. 4. Hepatosplenomegaly. 5. Adenopathy in the chest, retroperitoneum, and pelvis as described consistent with known history of CLL. 6. Preliminary findings discussed with Dr. Suzanne De Leon in the emergency room at 14:30 hours. Dictated by: Nga Pittman M.D. on 04/07/2020 at 16:36 Approved by: Nga Pittman M.D. on 04/07/2020 at 16:43
[2020-04-07] MEDS: HYDROMORPHONE 1 MG INJ IV ×2 (14:50→16:45)
[2020-04-07] MEDS: CEFEPIME 2 GM in SODIUM CHLORIDE 0.9% 100 ML 200 ML IV (15:53)
--- NOTE | 2020-04-07 16:14 | DI.US.S_ITS ---
PROCEDURE: US ABDOMEN LIMITED INDICATIONS: ? cholangitis TECHNIQUE: Real-time scanning was performed of the abdominal and retroperitoneal organs, with image documentation. COMPARISON: [facility], CT, CT CHEST ABD PEL W CON, 04/07/2020, 14:48. FINDINGS: Liver is within normal limits. Normal flow in the main portal vein. Gallbladder wall is mildly thickened at 3 mm. Multiple calculi and sludge within the gallbladder lumen. Gallbladder is distended measuring 12.4 cm. By common bile duct is mildly prominent at 6 mm and demonstrates wall thickening. IMPRESSION: 1. Cholelithiasis. No evidence of cholecystitis. 2. Thickened bile ducts, possibly indicating cholangitis. 3. Concordant with preliminary interpretation. Dictated by: Vidhya Mora M.D. on 04/07/2020 at 17:22 Approved by: Vidhya Mora M.D. on 04/07/2020 at 17:24
[2020-04-07] MEDS: VANCOMYCIN 1,500 MG/300 ML PIGGYBACK 200 MG IV (16:51)
[2020-04-07 17:13] LABS: COVID19 -Nasal RAPID Negative (Negative)
--- NOTE | 2020-04-07 18:17 | PC.NURSE ---
Report called to ALECIA Cid at [facility]. Pt going to bed d- 114
[2020-04-10 09:49] LABS: Acinetobacter baumannii Not Detected (Not Detect); Candida albicans Not Detected (Not Detect); Candida glabrata Not Detected (Not Detect); Candida krusei Not Detected (Not Detect); Candida parapsilosis Not Detected (Not Detect); Candida tropicalis Not Detected (Not Detect); E. coli Not Detected (Not Detect); Enterobacter cloacae complex Not Detected (Not Detect); Enterobacteriaceae species Not Detected (Not Detect); Enterococcus species Not Detected (Not Detect); Haemophilus influenzae Not Detected (Not Detect); Listeria monocytogenes Not Detected (Not Detect); Neisseria meningitidis Not Detected (Not Detect); Proteus species Not Detected (Not Detect); Pseudomonas aeruginosa Not Detected (Not Detect); Serratia marcescens Not Detected (Not Detect); Staphylococcus species Not Detected (Not Detect); Streptococcus agalactiae (Gr B Not Detected (Not Detect); Streptococcus pneumonia Not Detected (Not Detect); Streptococcus pyogenes (Gr A) Not Detected (Not Detect); Streptococcus species Not Detected (Not Detect)
== END 2020-04-07 20:07 | disposition short-term general hospital (02) ==
PROVIDERS: Emergency Provider Emergency Medicine; Family Provider Internal Medicine; PCP Internal Medicine
DX: C91.10 Chronic lymphocytic leukemia of B-cell type not having achieved remission (principal); R50.9 Fever, unspecified; M54.9 Dorsalgia, unspecified; I10 Essential (primary) hypertension; Z20.822 Contact with and (suspected) exposure to COVID-19
CPT/HCPCS: 36415; 71045; 71260; 74177; 76705; 80053; 81003; 83605; 83690; 84145; 85007; 85025; 85610; 85730; 87040; 87150; 87205; 87635; 93005; 93010; 96361; 96365; 96366; 96367; 96375; 96376; 99282; 99285; C9803; J0692; J1170; Q9967